=== PATIENT | male | born 1960 | race Caucasian/White ===

== ENCOUNTER 2020-12-23 19:15 | Emergency (ER) | payer OTHER ==
[~2020-12-23] VITALS: Ht 180.3 cm; Wt 81.7 kg
[2020-12-23] MEDS ORDERED: AMBIEN 10 MG TA10 MG PO (20:27)
[2020-12-23] MEDS ORDERED: BUSPIRONE HCL10 MG PO (20:27)
[2020-12-23] MEDS ORDERED: SEROQUEL 25 MG25 M1 PO (20:27)
[2020-12-23] MEDS ORDERED: SEROQUEL XR 30300 M1 PO (20:28)
[2020-12-24 04:47] VITALS: BP 101/74
--- NOTE | 2020-12-24 15:25 | EKG ---
[address] [place] [address] ELECTROCARDIOGRAM REPORT Name: KAREN GRIJALVA Room #: [facility]P [facility] [id number] Admission: 12/23/20 Attend Phys: Discharge: 12/24/20 Date of : 64 Report #: [id number] [facility] ED Test Date: 2020-12-24 Test Time: 04:37:37 Pat Name: KAREN GRIJALVA Department: Room: Gender: Cell Tuber Hand: YOGI : 1960 Requested By: Kalie Wesley Order Number: [id number] MD: Boo Gardner Measurements Intervals [place] Rate: 90 P: 42 MT: 126 QRS: -19 QRSD: 100 T: 10 QT: 351 QTc: 430 Interpretive Statements Sinus rhythm Borderline left axis deviation Borderline T abnormalities, anterior leads No previous ECG available for comparison Electronically Signed On 12-24-2020 15:25:20 CDT by Boo Gardner [email or web address] <ELECTRONICALLY SIGNED> By: Boo Gardner MD, [facility] 12/24/20 1525 0437 [id number] Boo Gardner MD, FACC /EPI
== END 2020-12-24 08:08 | disposition still patient (30) ==
LOC: ER 19:15
PROVIDERS: Physician Assistant
DX: F32.9 Major depressive disorder, single episode, unspecified (principal); R45.851 Suicidal ideations; Z79.899 Other long term (current) drug therapy; Z88.2 Allergy status to sulfonamides; Z20.822 Contact with and (suspected) exposure to COVID-19